=== PATIENT | female | born 1965 | race American Indian/Alaskan Native ===

== ENCOUNTER 2018-09-07 19:39 | Emergency (ER) | payer OTHER ==
[2018-09-07] MEDS ORDERED: NACL 0.9% 1000 ML 1,000 ML IV ONE (20:11)
[2018-09-07 20:51] LABS: Hematocrit 30.3 % (30.3-42.9); Hemoglobin 9.5 gm/dl (10.1-14.3); Mean Corpuscular HGB Conc 31 % (30-34); Platelet Count 226 K/mm3 (140-440); Red Blood Count 5.04 M/mm3 (3.65-5.03); Red Cell Distribution Width 19.9 % (13.2-15.2)
[2018-09-07 21:06] LABS: Mean Corpuscular Hemoglobin 19 pg (28-32); Mean Corpuscular Volume 60 fl (79-97)
[2018-09-07] MEDS ORDERED: MORPHINE IV ONE (21:10)
--- NOTE | 2018-09-07 21:10 | Emergency Department Report ---
HPI - General Chief Complaint: Abdominal Pain Time Seen by Provider: 09/07/18 21:03 - HPI HPI: That started about 6 or 7 hours prior to arrival. It is a sharp intense pain, 10 out of 10, that is worst in the left side of the abdomen but otherwise is generalized. She denies any nausea, vomiting, diarrhea, constipation, vaginal bleeding or discharge, fever. The patient also presents with elevated blood pressure but does not have any past medical history of hypertension, or any past medical history whatsoever. She does not follow with a primary care physician. They tried some [id number] pain medication, which name he cannot currently remember, without much relief. No recent travel or sick contacts at home. ED Past Medical Hx - Past Medical History Previous Medical History?: No - Surgical History Additional Surgical History: - Social History Smoking Status: Never Smoker Substance Use Type: None - Medications Home Medications: Home Medications Medication Instructions Recorded Confirmed Last Taken Type HYDROcodone/APAP 5-325 [[place] 1 each PO Q6HR PRN #10 tablet 09/08/18 Unknown Rx 5/325] ED Review of Systems ROS: Stated complaint: ABD PAIN X 6HOURS Other details as noted in HPI Comment: All other systems reviewed and negative Constitutional: denies: chills, fever Eyes: denies: eye pain, eye discharge, vision change ENT: denies: ear pain, throat pain Respiratory: denies: cough, shortness of breath, wheezing Cardiovascular: denies: chest pain, palpitations Gastrointestinal: abdominal pain. denies: nausea, vomiting Genitourinary: denies: urgency, dysuria, discharge Musculoskeletal: denies: back pain, joint swelling, arthralgia Skin: denies: rash, lesions Neurological: denies: headache, weakness, paresthesias Physical Exam - Physical Exam Vital Signs: Vital Signs 09/07/18 20:09 Temperature 99.8 F H Pulse Rate 101 H Respiratory 20 Rate Blood Pressure 182/90 O2 Sat by Pulse 100 Oximetry Physical Exam: GENERAL: Well nourished. Well developed. HENT: Normocephalic. Atraumatic. Patient has moist mucous membranes. EYES: Extraocular motions are intact. Pupils are equal and reactive bilaterally. NECK: Supple. Trachea is midline. CHEST/LUNGS: Clear to auscultation. There is no respiratory distress noted. HEART/CARDIOVASCULAR: Regular. There is moderate tachycardia. There is no murmur. ABDOMEN: Abdomen is soft. There is left middle and upper abdominal tenderness to palpation. There is mild lower abdominal tenderness. No guarding. Patient has normal bowel sounds. There is no abdominal distention. SKIN: Skin is warm and dry. NEURO: Patient is awake, alert and oriented. The patient is cooperative. No focal, motor or sensory deficits. MUSCULOSKELETAL: There is no tenderness or deformity. No restriction to range of motion. There is no evidence of acute injury. ED Course Vital Signs 09/07/18 20:09 Temperature 99.8 F H Pulse Rate 101 H Respiratory 20 Rate Blood Pressure 182/90 O2 Sat by Pulse 100 Oximetry ED Medical Decision Making - Lab Data Result diagrams: 09/07/18 20:28 09/07/18 20:28 - Radiology Data Radiology results: report reviewed, image reviewed interpreted by me: Abdominal x-ray shows nonspecific nonobstructive bowel gas. PROCEDURE: CT ABDOMEN PELVIS W CON TECHNIQUE: Computerized axial tomography of the abdomen and pelvis was performed after the IV injection of iodinated nonionic contrast. HISTORY: abd pain COMPARISON: No prior studies are available for comparison. FINDINGS: Visualized lower thorax: No significant abnormality. Liver: Normal size and attenuation. Spleen: Normal size and attenuation. Gallbladder and biliary system: Normal. Pancreas: Normal. Adrenals: Normal. Kidneys: Both kidneys have normal size. No hydronephrosis. No renal stones or masses. GI tract: Stomach is normal. The small bowel has a normal caliber without obstruction. No ileus or enteritis. The cecum, appendix region and colon are normal.. Lymph nodes and mesentery: Normal. Vasculature: Normal. Bladder: Normal. Reproductive organs: Normal. Peritoneum: No free fluid. Musculoskeletal structures: No significant abnormality. Other: None. IMPRESSION: There is no evidence of intestinal or urinary tract obstruction. No ileus or enteritis. Transcribed By: [facility] Dictated By: PINEDA TAYLOR MD Electronically Authenticated By: PINEDA TAYLOR MD Signed Date/Time: 09/07/18 7872 - Medical Decision Making This patient presents with some acute abdominal pain that she says is worst in the lower quadrants but appears to be most painful to the left middle and upper quadrant. However the abdomen is soft, nontoxic, non-rigid. Labs were unremarkable including no significant leukocytosis. No electrolyte abnormalities, renal insufficiency, glucose abnormalities and she had normal belly labs. Urinalysis does not show any urinary tract infection. She was given a dose of pain medication and upon reevaluation she is feeling improved. CT of the abdomen and pelvis did not show any evidence of intestinal obstruction , ileus, enteritis or any other acute intra-abdominal or intrapelvic pathology. Vital signs were stable throughout her ED course but she does have some hypertension. She denies any history of this. It may be secondary to her discomfort. We discussed trying to stay away from foods high in salt caffeinated products and keeping a blood pressure log. She will follow up with a primary care physician and has been given a referral for gastroenterology. She will return the ER for any worsening of her symptoms or any acute distress. - Differential Diagnosis pancreatitis, cholelithiasis, gastritis, colitis Critical Care Time: No Critical care attestation.: If time is entered above; I have spent that time in minutes in the direct care of this critically ill patient, excluding procedure time. ED Disposition Clinical Impression: Abdominal pain Qualifiers: Abdominal location: generalized Qualified Code(s): R10.84 - Generalized abdominal pain Hypertension Qualifiers: Hypertension type: essential hypertension Qualified Code(s): I10 - Essential ( primary) hypertension Disposition: DC-01 TO HOME OR SELFCARE Is pt being admited?: No Condition: Stable Instructions: Abdominal Pain (ED), Hypertension (ED) Additional Instructions: Please follow up with a primary care physician in the next few days. I'm giving her a referral for a milk receiver tank truck, Dr. Simmons, to follow up regarding her abdominal pain. Try and stay away from foods that are high in salt and caffeinated products to help with your blood pressure. Keep a blood pressure log. Return to the emergency Department with any worsening of your symptoms or any acute distress. You have been prescribed a medication that is sedating and therefore should not be taken prior to driving, working, and responsible for children and in no way should be mixed with alcohol of any quantity. Prescriptions: HYDROcodone/APAP 5-325 [[place] 5/325] 1 each PO Q6HR PRN #10 tablet PRN Reason: Pain Referrals: TARA SIMMONS MD [Staff Physician] - 2-3 Days MARCO A STEVENSON MD [Staff Physician] - 2-3 Days [facility] [Outside] - 2-3 Days Forms: Accompanied Note, Work/School Release Form(ED) Time of Disposition: 00:08
[2018-09-07 21:23] LABS: Alanine Aminotransferase 16 units/L (7-56); Albumin 4.4 g/dL (3.9-5); BUN/Creatinine Ratio 19; Blood Urea Nitrogen 13 mg/dL (7-17); Calcium 9.1 mg/dL (8.4-10.2); Hemolysis Index 4
[2018-09-07 21:38] LABS: Bilirubin,Urine NEG (Negative); Blood,Urine NEG (Negative); Color,Urine Straw (Yellow); Protein,Urine <15 mg/dL mg/dL (Negative); RBC,Urine < 1.0 /HPF (0.0-6.0); Urobilinogen,Urine < 2.0 mg/dL (<2.0)
[2018-09-07 22:18] LABS: Anisocytosis 1+; Band Neutrophils # (Manual) 0.1 K/mm3; Basophils % (Manual) 0 % (0.0-1.8); Platelet Estimate Consistent w Auto; Total Cells Counted 100
[2018-09-07] MEDS ORDERED: TYLENOL PO ONE (22:37)
--- NOTE | 2018-09-07 23:13 | XRay Report ---
FINAL REPORT PROCEDURE: XR ABDOMEN 2V TECHNIQUE: Abdominal series, including supine and upright AP views. HISTORY: Abd pain COMPARISON: No prior studies are available for comparison. FINDINGS: Bowel gas pattern:Nonobstructive . Masses or calcifications:None . Bony structures:No significant abnormality . Pneumoperitoneum:None . Other:No significant findings . IMPRESSION: No acute abnormality.
--- NOTE | 2018-09-07 23:44 | Cat Scan Report ---
FINAL REPORT PROCEDURE: CT ABDOMEN PELVIS W CON TECHNIQUE: Computerized axial tomography of the abdomen and pelvis was performed after the IV injection of iodinated nonionic contrast. HISTORY: abd pain COMPARISON: No prior studies are available for comparison. FINDINGS: Visualized lower thorax: No significant abnormality. Liver: Normal size and attenuation. Spleen: Normal size and attenuation. Gallbladder and biliary system: Normal. Pancreas: Normal. Adrenals: Normal. Kidneys: Both kidneys have normal size. No hydronephrosis. No renal stones or masses. GI tract: Stomach is normal. The small bowel has a normal caliber without obstruction. No ileus or enteritis. The cecum, appendix region and colon are normal.. Lymph nodes and mesentery: Normal. Vasculature: Normal. Bladder: Normal. Reproductive organs: Normal. Peritoneum: No free fluid. Musculoskeletal structures: No significant abnormality. Other: None. IMPRESSION: There is no evidence of intestinal or urinary tract obstruction. No ileus or enteritis.
[2018-09-08 00:47] VITALS: BP 165/84
== END 2018-09-08 01:04 | disposition home or self-care (01) ==
LOC: ED 19:39
DX: R10.84 Generalized abdominal pain (principal); I10 Essential (primary) hypertension
CPT/HCPCS: 36415; 74019; 74177; 80053; 81001; 83690; 85007; 85025; 96374; 99284; J2270; J7030; Q9967

== ENCOUNTER 2020-10-15 10:17 | Outpatient (CLI) | payer OTHER ==
--- NOTE | 2020-10-15 17:44 | Mammography Report ---
DIGITAL SCREENING MAMMOGRAM WITH CAD, 10/15/2020 INDICATION: Routine screening mammography. TECHNIQUE: Digital bilateral 2D mammography was obtained in the craniocaudal and mediolateral obliq ue projections. This examination was interpreted with the benefit of Computer-Aided Detection analysi s. COMPARISON: None. This is the patient's first mammogram. FINDINGS: Breast Density: There are scattered areas of fibroglandular density. There is no evidence of dominant mass, suspicious calcifications or architectural distortion in eithe r breast. IMPRESSION: Follow up recommendation: Routine yearly BI-RADS Category 1: Negative. A "normal" or negative report should not discourage follow up or biopsy of a clinically significant f inding. A written summary of these findings will be mailed to the patient. The patient will be entered into a mammography reporting system which will generate a reminder letter for the patient's next appointmen t at the appropriate interval. The [employer] recommends yearly mammograms starting at age 40 and continuing as l [place] as a woman is in good health. Breast MRI is recommended for women with an approximate 20-25% or greater lifetime risk of breast cancer, including women with a strong family history of breast or ova suzi cancer or who have been treated for Hodgkin's disease. Signer Name: Cindy Garibay MD Signed: 10/15/2020 5:43 PM Workstation Name: [email or web address]
== END 2020-10-15 10:18 | disposition home or self-care (01) ==
LOC: MAMMO 10:17
PROVIDERS: ATTEND Nurse Practitioner Family
DX: Z12.31 Encounter for screening mammogram for malignant neoplasm of breast (principal)
CPT/HCPCS: 77067

== ENCOUNTER 2021-01-17 10:02 | Emergency (ER) | payer OTHER ==
[2021-01-17 10:43] VITALS: BP 178/99
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
--- NOTE | 2021-01-17 11:32 | XRay Report ---
XR spine lumbosacral 2-3V, XR spine cervical 2-3V, XR shoulder 2+V RT, XR spine thoracic 2V INDICATION / CLINICAL INFORMATION: back pain. COMPARISON: None available. FINDINGS: Right shoulder: No acute fracture. Normal alignment. Joint spaces are preserved. No destructive oss eous lesion or suspicious periosteal reaction. Spine: Cervical, thoracic, and lumbar vertebrae: Normal alignment. Vertebral body heights are preserved th roughout the spine. C1 and C2 are congruent. Odontoid process is intact. Spondylosis:No significant abnormality. Soft tissues: No prevertebral soft tissue thickening in the cervical spine. Impression: 1.No acute traumatic abnormality is seen within the right shoulder or the spine. Signer Name: Anthony Moreno MD Signed: 01/17/2021 11:28 AM Workstation Name: [id number]
== END 2021-01-17 12:04 | disposition home or self-care (01) ==
LOC: ED 10:02
DX: S39.012A Strain of muscle, fascia and tendon of lower back, initial encounter (principal); S46.911A Strain of unspecified muscle, fascia and tendon at shoulder and upper arm level, right arm, initial encounter; Z79.899 Other long term (current) drug therapy; V49.69XA Unspecified car occupant injured in collision with other motor vehicles in traffic accident, initial encounter; Y93.89 Activity, other specified; Y92.488 Other paved roadways as the place of occurrence of the external cause; Y99.8 Other external cause status
CPT/HCPCS: 72040; 72070; 72100; 99283

== ENCOUNTER 2022-01-23 10:55 | Emergency (ER) | payer OTHER ==
[2022-01-23 12:29] VITALS: BP 164/86
--- NOTE | 2022-01-23 13:31 | Emergency Department Report ---
- General Chief complaint: Pain General Stated complaint: BREAST PAIN Time Seen by Provider: 01/23/22 13:19 Source: patient Mode of arrival: Ambulatory Limitations: No Limitations - History of Present Illness Initial comments: 56-year-old female presents to the emergency room for right breast pain x1 week. She has not taken anything for pain as she states is just a little. She reports she does not have a primary care provider at this time. She denies any injury to her breasts. Denies any nipple drainage from her breasts no fever no chills. complaint: rash Onset/Timin -: week(s) Location: chest (Right breast) Severity: mild Severity scale (0 -10): 2 Quality: burning Consistency: intermittent Improves with: none Worsens with: none Context: none Associated symptoms: denies other symptoms Treatments Prior to Arrival: none - Related Data Previous Rx's Medication Instructions Recorded Last Taken Type HYDROcodone/APAP 5-325 [[place] 1 each PO Q6HR PRN #10 tablet 09/08/18 Unknown Rx 5/325] Cyclobenzaprine HCl [Flexeril 5 MG 10 mg PO TID #30 tab 01/17/21 Unknown Rx TAB] Naproxen [Naprosyn] 500 mg PO BID #20 tablet 01/17/21 Unknown Rx Clotrimazole/Betamethasone Dip 15 gm TP BID #1 tube 01/23/22 Unknown Rx [Lotrisone Cream] Allergies Allergy/AdvReac Type Severity Reaction Status Date / Time No Known Allergies Allergy Unverified 01/23/22 12:29 Abscess Boil HPI - HPI Chief Complaint: Pain General Stated Complaint: BREAST PAIN Time Seen by Provider: 01/23/22 13:19 Home Medications: Previous Rx's Medication Instructions Recorded Last Taken Type HYDROcodone/APAP 5-325 [[place] 1 each PO Q6HR PRN #10 tablet 09/08/18 Unknown Rx 5/325] Cyclobenzaprine HCl [Flexeril 5 MG 10 mg PO TID #30 tab 01/17/21 Unknown Rx TAB] Naproxen [Naprosyn] 500 mg PO BID #20 tablet 01/17/21 Unknown Rx Clotrimazole/Betamethasone Dip 15 gm TP BID #1 tube 01/23/22 Unknown Rx [Lotrisone Cream] Allergies/Adverse Reactions: Allergies Allergy/AdvReac Type Severity Reaction Status Date / Time No Known Allergies Allergy Unverified 01/23/22 12:29 ED Review of Systems ROS: Stated complaint: BREAST PAIN Other details as noted in HPI Comment: All other systems reviewed and negative ED Past Medical Hx - Past Medical History Previous Medical History?: No - Surgical History Past Surgical History?: Yes Additional Surgical History: - Social History Smoking Status: Never Smoker Substance Use Type: None - Medications Home Medications: Home Medications Medication Instructions Recorded Confirmed Last Taken Type HYDROcodone/APAP 5-325 [[place] 1 each PO Q6HR PRN #10 tablet 09/08/18 Unknown Rx 5/325] Cyclobenzaprine HCl [Flexeril 5 MG 10 mg PO TID #30 tab 01/17/21 Unknown Rx TAB] Naproxen [Naprosyn] 500 mg PO BID #20 tablet 01/17/21 Unknown Rx Clotrimazole/Betamethasone Dip 15 gm TP BID #1 tube 01/23/22 Unknown Rx [Lotrisone Cream] ED Physical Exam - General Limitations: No Limitations General appearance: alert, in no apparent distress - Head Head exam: Present: atraumatic, normocephalic - Eye Eye exam: Present: normal appearance - ENT ENT exam: Present: mucous membranes moist - Neck Neck exam: Present: normal inspection - Respiratory Respiratory exam: Present: normal lung sounds bilaterally. Absent: respiratory distress - Cardiovascular Cardiovascular Exam: Present: regular rate, normal rhythm. Absent: systolic murmur, diastolic murmur, rubs, gallop - GI/Abdominal GI/Abdominal exam: Present: soft, normal bowel sounds - Extremities Exam Extremities exam: Present: normal inspection - Back Exam Back exam: Present: normal inspection - Neurological Exam Neurological exam: Present: alert, oriented X3 - Psychiatric Psychiatric exam: Present: normal affect, normal mood - Skin Skin exam: Present: warm, dry, intact, rash, erythema (under rt breast) ED Course Vital Signs 01/23/22 12:27 Temperature 98.0 F Pulse Rate 82 Respiratory 18 Rate Blood Pressure 164/86 O2 Sat by Pulse 99 Oximetry ED Medical Decision Making - Medical Decision Making 56-year-old female presents to the emergency room for right breast pain x1 week. She has not taken anything for pain as she states is just a little. She reports she does not have a primary care provider at this time. She denies any injury to her breasts. Denies any nipple drainage from her breasts no fever no chills. Discussed with patient that I do not feel it is a cellulitis. Discussed with patient she can use [id number] Lotrisone or antifungal and to follow-up with her primary care provider. I encourage patient to get a mammogram if she has not had 1 this year. Tylenol ibuprofen as needed for pain management. Critical care attestation.: If time is entered above; I have spent that time in minutes in the direct care of this critically ill patient, excluding procedure time. ED Disposition Clinical Impression: Tinea, Breast pain, right Disposition: HOME / SELF CARE / HOMELESS Is pt being admited?: No Does the pt Need Aspirin: No Condition: Stable Instructions: Nonspecific Chest Pain, Adult, Pain Without a Known Cause Additional Instructions: Use cream as prescribed follow-up with your primary care provider Prescriptions: Clotrimazole/Betamethasone Dip [Lotrisone Cream] 15 gm TP BID #1 tube Referrals: KEYLA WOODRUFF MD [Primary Care Provider] - 3-5 Days CAMERON REY MD [Staff Physician] - 3-5 Days YEIMY LAMAR MD [Staff Physician] - 3-5 Days TRACY CHANEY FNP [Referring] - 3-5 Days Time of Disposition: 13:30
== END 2022-01-23 13:58 | disposition home or self-care (01) ==
LOC: ED 10:55
DX: B35.9 Dermatophytosis, unspecified (principal); N64.4 Mastodynia; Z98.890 Other specified postprocedural states; Z79.899 Other long term (current) drug therapy
CPT/HCPCS: 99282